=== PATIENT | female | born 1965 | race African-American/Black ===

== ENCOUNTER → 2023-12-24 | Outpatient (REF) | payer OTHER | LOC: MAMMO 08:04 | PROVIDERS: ATTEND Internal Medicine | DX: Z12.31 Encounter for screening mammogram for malignant neoplasm of breast (principal) | CPT/HCPCS: 77067 ==

== ENCOUNTER → 2025-02-09 | Outpatient (REF) | payer OTHER | LOC: MAMMO 15:07 | PROVIDERS: ATTEND Internal Medicine | DX: Z12.31 Encounter for screening mammogram for malignant neoplasm of breast (principal) | CPT/HCPCS: 77067 ==